=== PATIENT | male | born 1980 | race American Indian/Alaskan Native ===

== ENCOUNTER 2019-01-14 19:52 | Emergency (ER) | payer OTHER ==
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
--- NOTE | 2019-01-14 21:03 | XRay Report ---
Left shoulder 4 views INDICATION: Left shoulder pain following injury IMPRESSION: No fracture or subluxation identified. Signer Name: Joe Singh MD Signed: 01/14/2019 8:58 PM Workstation Name: [id number]
--- NOTE | 2019-01-14 21:03 | XRay Report ---
Cervical spine 3 views INDICATION: Neck pain following injury IMPRESSION: No fracture or subluxation of the cervical spine identified. Signer Name: Joe Singh MD Signed: 01/14/2019 8:59 PM Workstation Name: [id number]
[2019-01-15] MEDS ORDERED: ULTRAM PO ONE (00:05)
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
[2019-01-15 06:17] VITALS: BP 139/93
== END 2019-01-15 01:35 | disposition home or self-care (01) ==
LOC: ED 19:52
DX: S16.1XXA Strain of muscle, fascia and tendon at neck level, initial encounter (principal); S46.912A Strain of unspecified muscle, fascia and tendon at shoulder and upper arm level, left arm, initial encounter; Z79.899 Other long term (current) drug therapy; V43.52XA Car driver injured in collision with other type car in traffic accident, initial encounter; Y93.89 Activity, other specified; Y92.488 Other paved roadways as the place of occurrence of the external cause; Y99.8 Other external cause status
CPT/HCPCS: 72040; 99283